=== PATIENT | female | born 1945 | race Caucasian/White ===

== ENCOUNTER 2016-05-31 13:22 | Emergency (ER) | payer OTHER ==
[2016-05-31 13:29] VITALS: BP 158/84; PULSE 70; RESP 16; TEMP 98.1; O2SAT 94
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
[2016-05-31] MEDS ORDERED: IPRATROPIUM/ALBUTEROL 3 ML DEYVIAL ONE (14:35)
[2016-05-31] MEDS ORDERED: IPRATROPIUM/ALBUTEROL 3 ML DEYVIAL IH ONE (15:21)
== END 2016-05-31 15:24 | disposition home or self-care (01) ==
DX: J11.1 Influenza due to unidentified influenza virus with other respiratory manifestations (principal); Z85.828 Personal history of other malignant neoplasm of skin

== ENCOUNTER 2017-10-08 14:30 | Emergency (ER) | payer OTHER ==
--- NOTE | 2017-10-08 15:00 | EDPHY ---
H & P Time Seen by Provider: 10/08/17 14:57 HPI/ROS: CHIEF COMPLAINT: Left knee pain post mechanical fall HISTORY OF PRESENT ILLNESS: 71-year-old female drove herself to the ER complaining of acute left knee and distal tibia pain after she sustained a mechanical fall in her apartment a few hours ago. She is able to bear partial weight albeit with pain. There is no head injury. This was not a syncopal episode. This was a mechanical incident. No hip injury. No foot or ankle injury. No head injury. No neck pain or injury. No chest pain or injury PE PHYSICAL EXAM (Prior to examination, patient consented to physical exam, hands were washed and my usual and customary physical exam procedures followed) 1) GENERAL: Well-developed, well-nourished, alert and oriented. Appears to be in no acute distress. 2) HEAD: Normocephalic 3) HEENT: Pupils equal, round, reactive to light bilaterally. 4) LUNGS: Breathing comfortably. 5) MUSCULOSKELETAL: I have observed her ambulating and she necessitates assistance of the wall and a walker. She has a very unsteady gait. Exam of the left lower extremity shows normal coloration, normal temperature. Tender to palpation left medial knee. Tender to palpation distal 3rd of the tibia. No visible signs of trauma. No deformity. No crepitus. No angulation. . Compartments are soft. 6) SKIN: Intact 7) VASCULAR: DP,PT pulses and cap refill present and brisk distally DIFFERENTIAL DIAGNOSIS: in no particular order including but not limited to fracture, sprain, compartment syndrome, septic arthritis, DVT MEDICAL DECISION MAKING Serial evaluations performed on patient. I discussed the limitations of x-ray in diagnosis of knee pain and injury. At this time I do not think that emergent MRI is currently indicated. I have noted her ambulating on numerous instances and takes or significant amount of time to ambulate from the bed to the bathroom approximately 6 ft away. She has to lean on the wall and use her walker in the opposing hand. I have highly recommended she be admitted to the hospital as I am significantly concerned about her ability to care for herself. She also notes that she lives in a second-story walk-up apartment. On repeat instances I recommended admission however she is adamant that she "will be fine ". She requests a brace for her knee but is not happy with the knee immobilizer we provided her. She request Catracho wrap instead. I believe the patient to have decision-making capacity. If at any point she feels she is unable to care for self I recommend she call 911. She is a patient of [facility] and will plan on following up with orthopedic surgery there. She will be discharged with analgesia and discussed usual customary analgesia precautions instructions including sedation and alteration of judgment. No driving and similar. Smoking Status: Never smoked Constitutional: Initial Vital Signs Temperature (C) 36.6 C 10/08/17 14:34 Heart Rate 95 10/08/17 14:34 Respiratory Rate 18 10/08/17 14:34 Blood Pressure 127/56 H 10/08/17 14:34 O2 Sat (%) 94 10/08/17 14:34 O2 Delivery Mode Room Air Allergies/Adverse Reactions: No Known Allergies Allergy (Verified 10/08/17 14:33) Home Medications: Medication Instructions Recorded Flonase Allergy Relief 10/08/17 Hydrocodone/APAP 5/325 [[place] 1 tab PO Q6 PRN #7 tab 10/08/17 5/325 (RX)] MDM/Departure - MDM Imaging Results: Imaging Impressions Knee X-Ray 10/08/17 14:42 Impression: 1. No acute osseous abnormality seen about the left knee. 2. [id number] degenerative changes at the knee joint with hypertrophic circumferential osteophytes. 3. Marked degenerative changes lateral patellofemoral joint. Tibia/Fibula X-Ray 10/08/17 15:54 Impression: 1. No acute osseous abnormality left tibia and fibula. 2. Degenerative changes about the knee joint and ankle joint. Images reviewed myself - Depart Disposition: Home, Routine, Self-Care Clinical Impression: Left medial knee pain, Left distal tibia pain Condition: Good Instructions: Knee Pain (ED) Additional Instructions: Return to the ER immediately if you experience discoloration, have worsening pain, numbness, tingling, or any other symptoms that concern you. If you received x-rays in the emergency department today, be advised, that ligamentous , tendon, muscular, and other non-bony injury cannot be fully ruled out. Try to keep your affected extremity elevated above the level of your chest, and keep cold packs on the affected area, for the next 48 hours. You have declined admission to the hospital. If you do not feel you are able to care for your self please call 911 right away. Prescriptions: Hydrocodone/APAP 5/325 [[place] 5/325 (RX)] 1 tab PO Q6 PRN #7 tab PRN Reason: Pain, Severe Referrals: VISHAL SERRANO [Other] - As per Instructions
[2017-10-08 16:53] VITALS: BP 168/70
== END 2017-10-08 17:10 | disposition home or self-care (01) ==
DX: S89.92XA Unspecified injury of left lower leg, initial encounter (principal); W18.39XA Other fall on same level, initial encounter
CPT/HCPCS: 73564; 73590; 99283; L1830